=== PATIENT | male | born 1975 | race Caucasian/White ===

== ENCOUNTER 2017-10-04 10:51 | Emergency (ER) | payer OTHER ==
[~2017-10-04] VITALS: Ht 177.8 cm; Wt 109.0 kg
[2017-10-04 11:05] VITALS: BP 168/96; PULSE 106; RESP 18; TEMP 98; O2SAT 96
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
[2017-10-04] MEDS ORDERED: CYCL10TA PO (12:40)
[2017-10-04] MEDS ORDERED: NAPR375T4 PO (12:40)
== END 2017-10-04 13:31 | disposition home or self-care (01) ==
LOC: NEPD 10:51
DX: S13.9XXA Sprain of joints and ligaments of unspecified parts of neck, initial encounter (principal); V89.2XXA Person injured in unspecified motor-vehicle accident, traffic, initial encounter
CPT/HCPCS: 72040; 99283; L0150